=== PATIENT | female | born 1940 | race Caucasian/White ===

== ENCOUNTER → 2016-11-29 | Outpatient (CLI) | payer MEDICARE, OTHER ==
[~2016-11-29] MED LIST: 3N1 COMMODE MC; ASPI-781 PO; BIOTIN PO; CAR120SR PO; CHOL50009 PO; DIOVAN PO; MAGN400T28 PO; OXYC-481 PO; VITAMIN D PO; WALK1EAC23 MC; ZINC PO; [UNRECOGNIZED DRUG - OTHER]
--- NOTE | 2016-11-29 12:44 | RADRPT ---
PROCEDURE: XR pelvis/right hip. CLINICAL INDICATION: Hip pain TECHNIQUE: AP pelvis/AP and lateral right hip views available for review. 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 There is normal mineralization, architecture and alignment. There is no evidence of loosening of th e prosthesis. There is no evidence of hardware failure. No fractures, dislocation or osseous lesions are identified. The joints are unremarkable. There are normal soft tissues. IMPRESSION: Bilateral total hip replacements. Otherwise unremarkable examination. RPTAT: [facility] .Parth Randolph MD, MD Date Time Electronically viewed and signed by .Parth Randolph MD, MD on 11/29/2016 12:43 .B/
== END | disposition home or self-care (01) ==
LOC: HKI 10:44
PROVIDERS: ATTEND Orthopaedic Surgery
DX: Z09 Encounter for follow-up examination after completed treatment for conditions other than malignant neoplasm (principal); Z96.643 Presence of artificial hip joint, bilateral
CPT/HCPCS: 73502; G0463